=== PATIENT | male | born 1945 | race Caucasian/White ===

== ENCOUNTER 2018-12-02 21:21 | Emergency (ER) | payer OTHER, MEDICARE ==
[2018-12-02] MEDS ORDERED: Bacitracin Oint 1 GM U/D Packet TOP ONE (22:26)
--- NOTE | 2018-12-02 22:28 | EDM.PDOC ---
ED HPI GENERAL MEDICAL PROBLEM - General Chief Complaint: Laceration Stated Complaint: RIGHT TOE LACERATION Time Seen by Provider: 12/02/18 22:21 Source of Information: Reports: Patient, RN Notes Reviewed History Limitations: Reports: No Limitations - History of Present Illness INITIAL COMMENTS - FREE TEXT/NARRATIVE: 72-year-old gentleman presents emergency department today with a laceration to his great toe on his right foot he injured himself when he accidentally caught his foot on some stairs coming out of [place], bleeding was controlled - Related Data Allergies Allergy/AdvReac Type Severity Reaction Status Date / Time No Known Allergies Allergy Verified 12/02/18 22:10 Home Meds: Home Meds NK [No Known Home Meds] 12/02/18 [History] Past Medical History - Past Health History Medical/Surgical History: Denies Medical/Surgical History Social & Family History - Tobacco Use Smoking Status *Q: Never Smoker - Alcohol Use Number of Drinks Per Day: 1 - Recreational Drug Use Recreational Drug Use: No ED ROS GENERAL - Review of Systems Review Of Systems: See Below Skin: Reports: Wound ED EXAM, SKIN/RASH Exam: See Below Text/Narrative:: Examination of the toe right foot great reveals a large laceration along the medial aspect he has full range of motion of the digits bleeding is controlled radial pulses +2 Exam Limited By: No Limitations General Appearance: Alert, WD/WN, No Apparent Distress ED SKIN PROCEDURES - Laceration/Wound Repair Right Toe - Great Lac/Wound length In cm: 5 Appearance: Subcutaneous (No disorder that she isn't and), Irregular, Clean Distal NVT: Neuro & Vascular Intact, No Tendon Injury Anesthetic Type: Digital Local Anesthesia - Lidocaine (Xylocaine): 1% Plain Local Anesthetic Volume: 5cc Skin Prep: Saline Saline Irrigation (cc's): 120 Exploration/Debridement/Repair: Wound Explored, In a Bloodless Field, Explored to Base Closed with: Sutures Suture Size: 4-0 # of Sutures: 13 Suture Type: Nylon Suture Size: 4-0 # of Sutures: 3 Repaired with: Vicryl ( libby) Sterile Dressing Applied: Nurse Tetanus Status Addressed: Yes (2014) Complications: No Course - Vital Signs Last Recorded V/S: Last Vital Signs Temp 96.5 F 12/02/18 22:11 Pulse 67 12/02/18 22:11 Resp 16 12/02/18 22:11 BP 113/63 07/31/19 22:11 Pulse Ox 95 12/02/18 22:11 - Orders/Labs/Meds Meds: Medications Discontinued Medications Generic Name Dose Route Start Last Admin Trade Name Lucy PRN Reason Stop Dose Admin Bacitracin 1 dose 12/02/18 22:26 12/02/18 22:46 Bacitracin Oint 1 Gm TOP 12/02/18 22:27 1 dose ONETIME ONE Administration Lidocaine HCl 5 ml 12/02/18 22:26 12/02/18 22:45 Xylocaine-Mpf 1% INJECT 12/02/18 22:27 5 ml ONETIME ONE Administration Departure - Departure Time of Disposition: 23:56 Disposition: Home, Self-Care 01 Condition: Fair Clinical Impression: Laceration of right great toe Qualifiers: Encounter type: initial encounter Damage to nail status: without damage Foreign body presence: without foreign body Qualified Code(s): S91.111A - Laceration without foreign body of right great toe without damage to nail, initial encounter - Discharge Information Instructions: Sutured Wound Care Referrals: PCP,None [Primary Care Provider] - Forms: ED Department Discharge Additional Instructions: Suture removal in 10 days, follow wound care instruction sheet, follow-up with primary care or return to emergency department for suture removal - Assessment/Plan Plan: Assessment Acuity = acute Site and laterality = laceration great toe right foot Etiology = secondary trauma Manifestations = none Location of injury = Home Lab values = none Plan Suture removal in 10 days, follow-up primary care return to the emergency department This note was dictated using [employer] voice recognition software please call with any questions on syntax or grammar.
--- NOTE | 2018-12-02 23:33 | CRLCR ---
INDICATION: Toe pain TECHNIQUE: Toe radiograph 3 views right 1st COMPARISON: None FINDINGS: Bone: No acute fractures or aggressive bone lesions are identified. 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 Soft tissue: There is a 1 mm density on medial aspect of the 1st proximal phalanx. IMPRESSIONS: 1. No acute osseous injuries or abnormalities are noted. 2. There is a 1 mm density on medial aspect of the 1st proximal phalanx. This is most likely a capsular calcification but correlation with site of injury may be helpful to exclude the less likely possibility of a foreign body. Dictated by Ari Angeles MD @ 12/02/2018 11:31:52 PM Dictated by: Ari Angeles MD @ 12/02/2018 23:32:01 (Electronically Signed)
== END 2018-12-03 00:32 | disposition home or self-care (01) ==
LOC: JP.ED 21:21
DX: S91.111A Laceration without foreign body of right great toe without damage to nail, initial encounter (principal); W23.1XXA Caught, crushed, jammed, or pinched between stationary objects, initial encounter
CPT/HCPCS: 12002; 73660; 99283; J2001; 99282

== ENCOUNTER 2023-11-07 22:43 | Emergency (ER) | payer MEDICARE, OTHER ==
[2023-11-08] MEDS ORDERED: Albuterol/Ipratropium 3.0-0.5 MG/3 ML Neb Soln NEB SCH (00:15)
[2023-11-08] MEDS ORDERED: Albuterol/Ipratropium 3.0-0.5 MG/3 ML Neb Soln NEB PRN (00:16)
[2023-11-08] MEDS: Sodium Chloride 0.9% 1,000 ML IV SCH (00:37)
[2023-11-08 00:40] LABS: BASOPHILS ABSOLUTE AUTO 0.08 K/uL (0.00-0.10); BASOPHILS PERCENT AUTO 1.3 % (0.1-1.3); EOSINOPHILS ABSOLUTE AUTO 0.67 K/uL (0.00-0.40); EOSINOPHILS PERCENT AUTO 10.8 % (0.0-5.4); HEMOGLOBIN 15.1 g/dL (12.9-16.9); IMMATURE GRAN PERCENT AUTO 0.3 % (0.0-0.7); LYMPHOCYTES ABSOLUTE AUTO 1.77 K/uL (0.8-3.3); LYMPHOCYTES PERCENT AUTO 28.6 % (11.4-47.7); MEAN CORPUSCULAR HEMOGLOBIN 32.1 pg (31.6-35.5); MEAN CORPUSCULAR VOLUME 89.2 fL (81.4-99.0); MONOCYTES ABSOLUTE AUTO 0.65 K/uL (0.20-0.90); MONOCYTES PERCENT AUTO 10.5 % (3.3-12.6); NEUTROPHILS ABSOLUTE AUTO 2.99 K/uL (1.0-7.6); NEUTROPHILS PERCENT AUTO 48.5 % (40.0-78.1); PLATELET COUNT,PLT 245 K/uL (130-375); RED BLOOD CELL COUNT 4.71 M/uL (4.14-5.76); WHITE BLOOD CELL COUNT,WBC 6.2 K/uL (3.2-11.0)
[2023-11-08 00:41] LABS: IMMATURE GRAN ABSOLUTE AUTO 0.02 K/uL (0.00-0.23)
[2023-11-08] MEDS: Albuterol 0.083% 2.5 MG/3 ML Neb Soln NEB ONE (00:43)
[2023-11-08] MEDS: cefTRIAXone 2 GM in Sodium Chloride 0.9% 50 ML IV SCH (00:47)
[2023-11-08 01:03] LABS: ALANINE AMINOTRANSFERASE,ALT 40 U/L (12-78); ALBUMIN 3.5 g/dL (3.4-5.0); ALKALINE PHOSPHATASE 73 U/L (46-116); ANION GAP 11.1 mmol/L (5.0-14.0); ASPARTATE AMNIOTRANSFERASE,AST 25 U/L (15-37); BILIRUBIN TOTAL 0.3 mg/dL (0.2-1.0); BLOOD UREA NITROGEN,BUN 25 mg/dL (7-18); CALCIUM 9.2 mg/dL (8.5-10.1); CARBON DIOXIDE,CO2 25 mmol/L (21-32); CHLORIDE,CL 104 mmol/L (100-108); CREATININE 1.1 mg/dL (0.8-1.3); EST CRCL DRUG DOSING (CG) 63.56 mL/min; ESTIMATED GFR 69 mL/min (>60); GLUCOSE RANDOM 143 mg/dL (74-106); POTASSIUM,K 3.7 mmol/L (3.6-5.2); SODIUM,NA 140 mmol/L (140-148)
[2023-11-08 01:04] LABS: MAGNESIUM 1.9 mg/dL (1.8-2.4)
[2023-11-08] MEDS: methylPREDNISolone Sodium Succinate 125 MG/2 ML SDV IVPUSH ONE (01:39)
[2023-11-08] MEDS: Doxycycline 100 MG in Sodium Chloride 0.9% 100 ML IV ONE (01:47)
[2023-11-08 02:12] LABS: CORONAVIRUS COVID-19 NAA NEGATIVE (NEGATIVE); INFLUENZA A NAA NEGATIVE (NEGATIVE); INFLUENZA B NAA NEGATIVE (NEGATIVE); RESPIRATORY SYNCYTIAL VIR NAA NEGATIVE (NEGATIVE)
== END 2023-11-08 03:15 | disposition home or self-care (01) ==
LOC: JP.ED 22:43
DX: J98.8 Other specified respiratory disorders (principal); Z79.899 Other long term (current) drug therapy
CPT/HCPCS: 0241U; 36415; 71046; 80053; 82150; 83605; 83690; 83735; 83880; 84145; 85025; 87040; 94640; 96361; 96365; 96367; 96375; 99285; J0696; J2919; J3490; J7030